=== PATIENT | female | born 1985 | race Caucasian/White ===

== ENCOUNTER 2016-12-17 22:05 | Emergency (ER) | payer OTHER ==
[2016-12-18 00:46] LABS: HEMOGLOBIN 12.9 gm/dl (12.3-15.3); RED BLOOD COUNT 4.04 M/UL (4.00-5.10); WHITE BLOOD COUNT 7.1 K/UL (4.5-11.0)
[2016-12-18 01:22] LABS: BUN/CREATININE RATIO 38 (0-10)
== END 2016-12-18 03:19 | disposition home or self-care (01) ==
LOC: ER1 22:05
PROVIDERS: Family Medicine
DX: N93.9 Abnormal uterine and vaginal bleeding, unspecified (principal); R05 Cough; R10.12 Left upper quadrant pain; F17.200 Nicotine dependence, unspecified, uncomplicated
CPT/HCPCS: 36415; 71020; 80053; 81001; 82150; 83690; 84703; 85025; 96374; 99284; J1885